=== PATIENT | female | born 1950 | race Caucasian/White ===

== ENCOUNTER → 2018-03-02 | Outpatient (CLI) | payer MEDICARE, OTHER | END | disposition home or self-care (01) | LOC: PCVCCLINIC 15:21 | PROVIDERS: ATTEND Internal Medicine | DX: R06.09 Other forms of dyspnea (principal); I10 Essential (primary) hypertension; E78.5 Hyperlipidemia, unspecified; E11.9 Type 2 diabetes mellitus without complications; G47.33 Obstructive sleep apnea (adult) (pediatric) | CPT/HCPCS: 93005; G0463 ==

== ENCOUNTER → 2018-03-13 | Outpatient (CLI) | payer MEDICARE, OTHER ==
[~2018-03-13] MED LIST: REGADENOSON 0.4 MG/5 ML DISP.SYRIN. IV ONE
--- NOTE | 2018-03-13 11:31 | PCVCIMAG ---
APPROVED REPORT Study performed: 03/13/2018 10:47:19 EXAM: Comprehensive 2D, Doppler, and color-flow Echocardiogram Patient Location: Echo lab Status: routine BSA: 1.78 HR: 64 bpmBP: 140/100 mmHg Rhythm: NSR Other Information Study Quality: Adequate Risk Factors: Cardiac Risk Factors: HTN Indications Diabetes Dyspnea obesity 2D Dimensions IVSd: 10.31 (7-11mm) LVDd: 44.62 mm PWd: 10.68 (7-11mm) LVDs: 26.47 (25-40mm) Left Atrium: 39.24 (27-40mm) Aortic Root: 28.87 mm LV Single Plane 4CH: 50.44 % LV Single Plane 2CH: 50.64 % Biplane EF: 51.0 % Volumes Left Atrial Volume (Systole) Single Plane 4CH: 64.17 mLSingle Plane 2CH: 50.84 mL LA ESV Index: 36.00 mL/m2 Aortic Valve AoV Peak Simon.: 1.73 m/s AO Peak Gr.: 12.18 mmHgLVOT Max P.47 mmHg LVOT Max V: 1.17 m/s Mitral Valve E/A Ratio: 0.8 MV Decel. Time: 223.00 ms MV E Max Simon.: 0.85 m/s MV A Simon.: 1.04 m/s MV PHT: 64.67 ms IVRT: 110.73 ms Pulmonary Valve PV Peak Simon.: 1.04 m/sPV Peak Gr.: 4.31 mmHg Pulmonary Vein P Vein S: 0.46 m/sP Vein A: 0.41 m/s P Vein D: 0.57 m/sP Vein A Dur.: 124.6 msec P Vein S/D Ratio: 0.81 Tricuspid Valve TR Peak Simon.: 2.55 m/s TR Peak Gr.: 26.05 mmHg Left Ventricle The left ventricle is normal size. There is normal LV segmental wall motion. There is normal left ventricular wall thickness. The overall left ventricular systolic function appears within lower limits of normal. LVEF is 50-55%. Grade I - abnormal relaxation pattern. Right Ventricle The right ventricle is normal size. The right ventricular systolic function is normal. Atria Left atrium is mildly dilated. The right atrium size is normal. Aortic Valve The aortic valve is normal in structure. No aortic regurgitation is present. There is no aortic valvular stenosis. Mitral Valve The mitral valve is normal in structure. There is no mitral valve regurgitation noted. No evidence of mitral valve stenosis. Tricuspid Valve The tricuspid valve is normal in structure. Mild tricuspid regurgitation with PAP of 33 mmHg. Pulmonic Valve The pulmonary valve is normal in structure. Trace pulmonic regurgitation. Great Vessels The aortic root is normal in size. IVC is normal in size and collapses >50% with inspiration. Pericardium There is no pericardial effusion. There is no pleural effusion. <Conclusion> The left ventricle is normal size. LVEF is 50-55%. Left atrium is mildly dilated. The aortic valve is normal in structure. The mitral valve is normal in structure. The tricuspid valve is normal in structure. Mild tricuspid regurgitation with PAP of 33 mmHg. The pulmonary valve is normal in structure. Trace pulmonic regurgitation. There is no pericardial effusion.
--- NOTE | 2018-03-18 15:38 | PCVCIMAG ---
APPROVED REPORT Imaging Protocol: Rest Tc-99m/Stress Tc-99m 1 day Study performed: 03/13/2018 12:16:20 Indication: Dyspnea Patient Location: Out-Patient Stress Nurse: Jyoti Rodas RN, Vannessa Bauman RN [place] Tech:Maryam Wattana luisa [facility] Ht: 5 ft 0 in Wt: 180 lbs BSA: 1.78 m2 HR: 58 bpm BP: 144/63 mmHg BMI: 35.1 Rhythm: Sinus Ryder Medical History Medical History: Dyspnea, Age Medications: ASA, Lisinopril-HCTZ, Simvastatin, Januvia, Actos Allergies: Crestor, Lipitor, Metformin, Victoza Pretest Chest Pain Characteristics: No chest pain Physical Disabilities: Knees Resting Data Rest SPECT myocardial perfusion imaging was performed in supine position 45 minutes following the intravenous injection of 10.1 mCi of Tc-99m Sestamibi. Time of rest injection: 1120 Date: 03/13/2018 Administration Route: IV Administration Site: Right AC Pharmacologic Stress Pharmacologic stress test was performed by injecting Regadenoson 0.4 mg IV push over 10-15 seconds immediately followed by the intravenous injection of 32.1 mCi of Tc-99m Sestamibi. Time of stress injection: 1245 Date: 03/13/2018 Administration Route: IV Administration Site: Right AC Gated Stress SPECT was performed 45 minutes after stress injection. The images were gated to evaluate regional wall motion and calculate left ventricular ejection fraction. Stress Test Details Stress Test: Pharmacologic stress testing performed using 0.4 mg of regadenoson per 5 mL given IV over 10 seconds. Reason for pharmacologic stress test: physical limitation, bilateral knee replacement. HRMax Heart Rate (APMHR): 151 bpm Resting HR: 58 bpmTarget HR (85% APMHR): 128 bpm Max HR Achieved: 90 bpm % of APMHR: 59 Recovery HR: 81 bpm BP Resting BP: 144/63 mmHg Max BP: 157/68 mmHg Recovery BP: 137/69 mmHg ECG Resting ECG: Sinus Bradycardia Stress ECG: Sinus Rhythm Arrhythmia: None Recovery ECG: Sinus Rhythm Clinical Reason for Termination: Completed protocol Stress Symptoms: Mild Dyspnea Exercise duration: 0 min 55 sec Symptoms resolved during recovery. Stress ECG Conclusion 1. Adequate response to IV Lexiscan 2. Inadequate heart rate for ECG diagnosis Study Data Post stress, the left ventricular ejection was 83%.. SSS: 0 SRS: 5 SDS: 0 TID = 1.07. Perfusion There is a large area of moderately reduced uptake in the entire segment of the inferior wall which is seen on the stress images as well as the resting images. This area thickens and moves normally and is most consistent with attenuation artifact. Nuclear Conclusion ECG Findings: non-diagnostic Clinical Findings: negative for ischemia Nuclear Findings: negative for ischemia although normalized to GI uptake Exercise Capacity: not assessed Left Ventricular Function: normal 1. Low to intermediate risk study based on GI normalization could reduce the visualization of inducible ischemia in the inferior wall Interpreted by: Sunita Gardner MD Electronically Approved: 03/18/2018 15:37:53 <Conclusion> 1. Adequate response to IV Lexiscan 2. Inadequate heart rate for ECG diagnosis
== END | disposition home or self-care (01) ==
LOC: PCVCIMAG 12:44
PROVIDERS: ATTEND Internal Medicine
DX: I07.1 Rheumatic tricuspid insufficiency (principal); R06.00 Dyspnea, unspecified; E66.9 Obesity, unspecified; E11.9 Type 2 diabetes mellitus without complications; R91.8 Other nonspecific abnormal finding of lung field; S50.319A Abrasion of unspecified elbow, initial encounter; X58.XXXA Exposure to other specified factors, initial encounter; Y93.89 Activity, other specified; Y92.89 Other specified places as the place of occurrence of the external cause; Y99.8 Other external cause status
CPT/HCPCS: 78452; 93017; 93306; A9500; J2785

== ENCOUNTER → 2018-03-24 | Outpatient (CLI) | payer MEDICARE, OTHER | END | disposition home or self-care (01) | LOC: PCVCCLINIC 11:24 | PROVIDERS: ATTEND Internal Medicine | DX: Z51.81 Encounter for therapeutic drug level monitoring (principal); I48.91 Unspecified atrial fibrillation; I25.10 Atherosclerotic heart disease of native coronary artery without angina pectoris; E78.5 Hyperlipidemia, unspecified; I10 Essential (primary) hypertension; E03.9 Hypothyroidism, unspecified; E11.9 Type 2 diabetes mellitus without complications; Z79.01 Long term (current) use of anticoagulants | CPT/HCPCS: 36415; 85610 ==

== ENCOUNTER → 2018-04-13 | Outpatient (CLI) | payer MEDICARE, OTHER | END | disposition home or self-care (01) | LOC: PCVCCLINIC 10:00 | PROVIDERS: ATTEND Internal Medicine | DX: I25.10 Atherosclerotic heart disease of native coronary artery without angina pectoris (principal); I10 Essential (primary) hypertension; E78.5 Hyperlipidemia, unspecified; G47.33 Obstructive sleep apnea (adult) (pediatric); E11.9 Type 2 diabetes mellitus without complications; R06.09 Other forms of dyspnea; K21.9 Gastro-esophageal reflux disease without esophagitis; E78.00 Pure hypercholesterolemia, unspecified; Z79.899 Other long term (current) drug therapy | CPT/HCPCS: G0463 ==